=== PATIENT | male | born 1995 | race Asian ===

== ENCOUNTER 2018-06-18 08:44 | Emergency (ER) | payer OTHER ==
[2018-06-18] MEDS ORDERED: NS 0.9% 1000 ML** 1,000 ML BOLUS ONE (09:22)
[2018-06-18] MEDS ORDERED: Ondansetron INJ* 2 MG/ML VIAL IV ONE (09:23)
[2018-06-18] MEDS ORDERED: Acetaminophen TAB* 325 MG PO ONE (09:23)
--- NOTE | 2018-06-18 09:59 | UC ---
Abdominal Pain Male HPI - HPI Summary HPI Summary: 23 yo male with the onset of LLQ abd pain, nausea, vomiting x 1 and loose stool since yesterday AM. Fever and shaking chills he thinks he ate some spoiled fish abd pain is intermittent able to tolerate some liquids today but concerned he may vomit if he eats anything - History of Current Complaint Chief Complaint: UCGI Stated Complaint: SHAKES/STOMACH/VOMITTING Time Seen by Provider: 06/18/18 09:17 Hx Obtained From: Patient Onset/Duration: Sudden Onset, Lasting Hours Timing: Constant Severity Initially: Mild Severity Currently: Moderate Pain Intensity: 0 - at present Pain Scale Used: 0-10 Numeric Location: Discrete At: LLQ Radiates: No Character: Cramping Aggravating Factor(s): Nothing Alleviating Factor(s): Nothing Associated Signs And Symptoms: Positive: Fever, Decreased Appetite, Nausea, Vomiting. Negative: Diaphoresis, Cough, Chest Pain, Dizzy, Back Pain, Constipation, Blood in Stool, Urinary Symptoms, Diarrhea - loose stool, Penile Discharge Male Torso: 1 - tender - Allergies/Home Medications Allergies/Adverse Reactions: Allergies Allergy/AdvReac Type Severity Reaction Status Date / Time No Known Allergies Allergy Verified 06/18/18 08:58 PMH/Surg Hx/FS Hx/Imm Hx Previously Healthy: Yes - Surgical History Surgical History: None - Family History Known Family History: Positive: Hypertension - Social History Alcohol Use: None Substance Use Type: None Smoking Status (MU): Never Smoked Tobacco Review of Systems All Other Systems Reviewed And Are Negative: Yes Constitutional: Positive: Fever, Chills Gastrointestinal: Positive: Abdominal Pain, Vomiting, Diarrhea - loose stools, Nausea Genitourinary: Positive: Negative Neurovascular: Positive: Negative Musculoskeletal: Positive: Negative Neurological: Positive: Negative Psychological: Positive: Negative Physical Exam Triage Information Reviewed: Yes Appearance: Well-Appearing, No Pain Distress, Well-Nourished Vital Signs: Initial Vital Signs Temp 102.5 F 06/18/18 08:54 Pulse 107 06/18/18 08:54 Resp 18 06/18/18 08:54 BP 164/77 06/18/18 08:54 Pulse Ox 96 06/18/18 08:54 Vital Signs Reviewed: Yes Eyes: Positive: Conjunctiva Clear ENT: Positive: Hearing grossly normal, Uvula midline, Other - dry lips. Negative: Nasal congestion, Nasal drainage, Muffled voice, Hoarse voice Dental Exam: Other - gingivitis Neck: Positive: Supple, Nontender, No Lymphadenopathy Respiratory: Positive: Lungs clear, Normal breath sounds, No respiratory distress, No accessory muscle use Cardiovascular: Positive: RRR, No Murmur, Tachycardia Abdomen Description: Positive: Soft. Negative: Nontender - LLQ tenderness, CVA Tenderness (R), CVA Tenderness (L) Bowel Sounds: Positive: Present Musculoskeletal: Positive: ROM Intact, No Edema Neurological: Positive: Alert Psychological Exam: Normal Skin Exam: Normal Re-Evaluation - Re-Evaluation First Eval Re-Evaluation Time: 11:19 Change: Improved Comment: No abd pain. Feels much better Abd Pain Male Course/Dx - Differential Dx/Clinical Impression Provider Diagnosis: Gastroenteritis Discharge - Sign-Out/Discharge Documenting (check all that apply): Patient Departure All imaging exams completed and their final reports reviewed: No Studies - Discharge Plan Condition: Stable Disposition: HOME Patient Education Materials: Gastroenteritis (ED) Referrals: No Primary Care Phys,NOPCP [Primary Care Provider] - - Billing Disposition and Condition Condition: STABLE Disposition: Home
[2018-06-18 11:24] VITALS: BP 144/55
== END 2018-06-18 11:35 | disposition home or self-care (01) ==
LOC: UCEAST 08:44
DX: K52.9 Noninfective gastroenteritis and colitis, unspecified (principal)
CPT/HCPCS: 81003; 96360; 99202; A9270-GY; G0463; J2405